=== PATIENT | female | born 1960 | race Two or more races ===

== ENCOUNTER → 2018-10-05 | Outpatient (CLI) | payer BC ==
--- NOTE | 2018-10-05 16:13 | CONS ---
Assessment/Plan Assessment/Plan Hospital Course (Demo Recall) This is a 58-year-old female presenting with 6 months of medial sided right knee pain. On examination she has mild laxity to valgus stress at 30 degrees which is consistent with an MCL injury. Her radiographs also show Rocael-Stieda which is consistent with an old MCL injury. She has had significant clinical improvement however she continues to have pain and soreness. An MRI to further evaluate the injury and the healing process would be beneficial. Based on the MRI findings hopefully conservative treatment would be continued. Authorization for right knee MRI Follow-up after MRI Consultation Date/Type/Reason Admit Date/Time Date of Consultation: Oct 05, 2018 Reason for Consultation Right knee pain Date/Time of Note DATE: 10/05/18 TIME: 14:55 Hx of Present Illness Is a 58-year-old female with a chief complaint of right knee pain. The pain began approximately 6 months ago after slipping down a single step. The patients pain is in the medial aspect of the right knee. Pain is not radiating to the lower leg. The pain is rated as a 6/10. The pain has improved over 50% but continues to be bothersome. She has done physical therapy. Patient denies complaints of numbness or tingling. The pain is exacerbated by climbing stairs and ambulation. Pain is not relieved by NSAID's. Duration: 6 months Injury: Slipped on a step Walking tolerance: 2 blocks Limp: No Support: No Swelling: At the time of injury. Has resolved Crepitation: No Instability: No Stairs: Normally Physical Therapy: Yes Injections: No NSAIDs: Yes Prior surgery: No Back pain: No Hip pain: No Risk of AVN : No Patient denies fever, chills, shortness of breath, chest pain, nausea/vomiting, constipation, diarrhea, numbness, and tingling. Past Medical History Medical History: no pertinent history Past Surgical History Past Surgical Hx: no surgical history Family History Significant Family History: no pertinent family hx Social History Alcohol Use: none Smoking Status: Never smoker Drug Use: none Exam/Review of Systems Exam Vitals Weight: 157 pounds Height: 5 foot Temperature: 30.2 Heart Rate: 69 Blood Pressure: 134/70 Respiratory Rate: 12 Exam General: Alert, oriented x3. No Acute Distress. Heart: Regular rate and rhythm. Lungs: No respiratory distress. No accessory muscle use. Musculoskeletal: Right Knee This is a well developed female who is alert, oriented times three and in no apparent distress. Skin is intact over the right knee as well as the lower extremity with no abrasions, lacerations, or ulcerations. Observation of the patient's gait reveals an antalgic gait with No thrust. Frontal plane alignment is neutral. There is pain the medial femoral condyle and the medial joint line. Negative Peña. The patient demonstrates grinding anteriorly with ROM. Range of motion: 0 extension to approximately 130 degrees of flexion. There is mild laxity of the MCL with valgus stress at 30 degrees. Otherwise collateral ligament testing reveals no instability. Negative Esvin's and negative posterior drawer. Neurovascularly intact with 5/5 EHL/tibialis anterior/gastroc. Sensation intact to light touch in a sural, saphenous, deep peroneal, superficial peroneal, medial and lateral plantar nerve distribution. Palpable, symmetric dorsalis pedis and posterior tibial pulses in both lower extremities. Hip examination normal. Imaging Imaging The patient received a standard set of films today that were personally reviewed. Imaging included a standing bilateral knee AP, PA flexion, merchant views and a dedicated lateral of the affected knee: There is neutral alignment of the knee. Chronic avulsion of the MCL origin, Rocael-Stieda sign. There is no loss of joint space in any compartment(s). There is no osteophyte formation. There is no subchondral sclerosis. There are no subchondral cysts. THO HENRY MD Oct 05, 2018 15:05
--- NOTE | 2018-10-06 08:12 | RADRPT ---
PROCEDURE: XR Knees. CLINICAL INDICATION: Bilateral knee pain. TECHNIQUE: Total of eight views. Weightbearing frontal, oblique, and lateral views of the both kne es. Patellar views of both knees. COMPARISON: No prior study is available for comparison. FINDINGS: There is no fracture or dislocation. There is partial ossification of the right medial collateral ligament consistent with chronic trauma at this site. Soft tissues are otherwise unremarkable. There are mild degenerative changes with small osteophytes arising from all 3 joint compartment derek ns. There is no joint space new para There is no lytic or blastic lesion. There is no radiopaque foreign body. IMPRESSION: 1. 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 2. Mild degenerative changes of both knees. 3. Otherwise unremarkable study. RPTAT: QQ .Gilbreto Perez MD, MD Date Time Electronically viewed and signed by .Gilberto Perez MD, MD on 10/06/2018 08:12 .R/
== END | disposition home or self-care (01) ==
LOC: HKI 14:58
PROVIDERS: ATTEND Orthopaedic Surgery Adult Reconstructive Orthopaedic Surgery
DX: M25.561 Pain in right knee (principal)
CPT/HCPCS: 73564; Z7500; G0463